=== PATIENT | female | born 1955 | race Caucasian/White ===

== ENCOUNTER → 2017-07-11 | Outpatient (CLI) | payer BC, OTHER ==
[~2017-07-11] MED LIST: RANI150T85 PO; SIMV20TA2 PO; TRAM-10 PO
--- NOTE | 2017-07-11 08:30 | DIAGNOSTIC IMAGING REPORT ---
L KNEE 3 VIEWS CLINICAL HISTORY: LEFT KNEE PAIN S/P TKA pain. Dyspnea. COMPARISON: 11/23/2015 DISCUSSION: Mild atelectatic change medial joint compartment right knee unchanged in the prior study. Total left knee arthroplasty good contact with underlying bone. No acute bony abnormality There is no evidence for soft tissue swelling. IMPRESSION: Mild degenerative change right knee unaltered from the prior study. Left knee total arthroplasty in good position. The above report was generated using voice recognition software. It may contain grammatical, syntax or spelling errors. Electronically signed by: Marin Quinn M.D. 07/11/2017 8:28 AM Dictated Date/Time: 07/11/2017 8:27 AM
== END | disposition home or self-care (01) ==
LOC: C.RDSM 08:07
PROVIDERS: ATTEND Physician Assistant
DX: M25.562 Pain in left knee (principal); Z96.652 Presence of left artificial knee joint